=== PATIENT | male | born 1955 | race Caucasian/White ===

== ENCOUNTER 2016-06-30 16:14 | Emergency (ER) | payer MEDICAID ==
[2016-06-30 16:36] VITALS: BP 158/96
--- NOTE | 2016-06-30 16:56 | UC ---
General HPI - HPI Summary HPI Summary: complaint of tick attached to genitals that was removed last night unsure of how long it was attached painful at the sight today feels a burning sensation took some naprosyn with some relief complaint of left arm rash that started approx 2 weeks slightly itchy , no drainage tried bag balm on rash without relief - History of Current Complaint Chief Complaint: UCSkin Stated Complaint: TICK BITE Time Seen by Provider: 06/30/16 16:50 Hx Obtained From: Patient - Allergy/Home Medications Allergies/Adverse Reactions: Allergies Allergy/AdvReac Type Severity Reaction Status Date / Time Cephalexin [From Keflex] Allergy Intermediate Hives & Verified 06/30/16 16:36 Swelling Penicillin V Allergy Intermediate Hives & Verified 06/30/16 16:36 [From Penicil VK] Swelling Cephalosporins Allergy HIVES AND Verified 06/30/16 16:36 SWELLING ALL PENICILLINS Allergy HIVES AND Uncoded 06/30/16 16:36 SWELLING ENVIRONMENTAL Allergy ALLERGIC Uncoded 06/30/16 16:36 RHINITIS Home Medications: Home Medications Furosemide TAB* [Lasix TAB*] 20 mg PO EVERY OTHER DAY 06/30/16 [History Confirmed 06/30/16] Tamsulosin CAP* [Flomax CAP*] 0.4 mg PO DAILY 06/30/16 [History Confirmed ] amLODIPine TAB* [Norvasc 5 mg TAB*] 5 mg PO DAILY 06/30/16 [History Confirmed ] PMH/Surg Hx/FS Hx/Imm Hx Previously Healthy: Yes Endocrine History Of: Denies: Diabetes, Thyroid Disease Cardiovascular History Of: Reports: Hypertension - CONTROL WITH MEDS Denies: Cardiac Disorders, Pacemaker/ICD Respiratory History Of: Denies: COPD, Asthma GI/ History Of: Denies: Ulcer, Renal Disease - Surgical History Surgical History: Yes Surgery Procedure, Year, and Place: TONSILLECTOMY. 1975 WISDOM TEETH EXTRACTION , [place]. RIGHT CARPALTUNNEL RELEASE AND RECONNECT NERVE SURGERY, [place]. VASECTOMY AND REVERSAL, [facility] – [place] / [place]. 2007 [facility] NEUROMA - LEFT FOOT - BENIGN, [place]. ULNAR NERVE - RT HAND, [place] - Family History Known Family History: Negative: Cardiac Disease, Hypertension, Diabetes - Social History Occupation: Employed Full-time Lives: With Family Alcohol Use: Occasionally Substance Use Type: None Smoking Status (MU): Former Smoker - Immunization History Most Recent Influenza Vaccination: 2014 Most Recent Tetanus Shot: 2009 Most Recent Pneumonia Vaccination: NONE Review of Systems Constitutional: Negative Skin: Other - tick bite Eyes: Negative ENT: Negative Respiratory: Negative Cardiovascular: Negative Gastrointestinal: Negative Genitourinary: Negative Motor: Negative Neurovascular: Negative Musculoskeletal: Negative Neurological: Negative Psychological: Negative All Other Systems Reviewed And Are Negative: Yes Physical Exam Triage Information Reviewed: Yes Appearance: No Pain Distress, Well-Nourished Vital Signs: Initial Vital Signs Temp 98.6 F 06/30/16 16:26 Pulse 72 06/30/16 16:26 Resp 20 06/30/16 16:26 BP 158/96 06/30/16 16:26 Pulse Ox 97 06/30/16 16:26 Vital Signs Reviewed: Yes Eyes: Positive: Conjunctiva Clear ENT: Positive: Pharynx normal, TMs normal Neck: Positive: No Lymphadenopathy Respiratory: Positive: Lungs clear, Normal breath sounds, No respiratory distress Cardiovascular: Positive: RRR, No Murmur, Pulses Normal Abdomen Description: Positive: Nontender, Soft Bowel Sounds: Positive: Present Musculoskeletal: Positive: No Edema Psychological Exam: Normal Skin: Positive: Other - tick bite, left wrist area of erythema- raised red borader clear center Course/Dx - Differential Dx - Multi-Symptom Differential Diagnoses: Other - tinea, contact dermatitis cellulitis, tick bite Provider Diagnoses: tick bite. tinea. elevated blood pressure Discharge - Discharge Plan Condition: Stable Disposition: HOME Prescriptions: Clotrimazole/Betamethasone* [Lotrisone Cream*] 1 applic TOPICAL BID #1 tube DOXYcycline CAP(*) [DOXYcycline 100MG CAP(*)] 100 mg PO DAILY #2 cap Patient Education Materials: Tick Bite (ED), Tinea Corporis (ED) Referrals: Rudolph Nicolas MD [Primary Care Provider] - Additional Instructions: Please take antibiotic and use cream as directed Increase fluids and rest Take naproxen for pain Please review your discharge instructions. If your symptoms do not improve please call your primary care provider or return to urgent care. Your blood pressure is elevated. Please contact your primary care provider within 1 day -4 weeks for further evaluation
== END 2016-06-30 17:20 | disposition home or self-care (01) ==
LOC: UCEAST 16:14
DX: S40.862A Insect bite (nonvenomous) of left upper arm, initial encounter (principal); W57.XXXA Bitten or stung by nonvenomous insect and other nonvenomous arthropods, initial encounter; I10 Essential (primary) hypertension; Z88.3 Allergy status to other anti-infective agents; Z88.0 Allergy status to penicillin; Z87.891 Personal history of nicotine dependence
CPT/HCPCS: 99212; G0463

== ENCOUNTER 2018-02-01 18:54 | Emergency (ER) | payer BC, OTHER ==
[2018-02-01 19:24] VITALS: BP 134/83
--- NOTE | 2018-02-01 19:35 | UC ---
Shoulder Pain HPI - HPI Summary HPI Summary: slipped and fell in to a ditch while out deer hunting today pain in left ribs--- - History of Current Complaint Chief Complaint: UCUpperExtremity Stated Complaint: L SHOULDER PAIN Time Seen by Provider: 02/01/18 19:27 Hx Obtained From: Patient Onset/Duration: Sudden Onset, Lasting Hours Timing: Constant Location Of Pain: Is Discrete @ - left ribs from under shulder blade to under axilla Pain Intensity: 3 Pain Scale Used: 0-10 Numeric Character: Aching Aggravating Factor(s): Movement Alleviating Factor(s): Nothing Associated Signs And Symptoms: Positive: Negative - Allergies/Home Medications Allergies/Adverse Reactions: Allergies Allergy/AdvReac Type Severity Reaction Status Date / Time MS Cephalexin [From Keflex] Allergy Intermediate Hives & Verified 02/01/18 19:06 Swelling gabapentin Allergy Hives Verified 02/01/18 19:07 MS Cephalosporins Allergy HIVES AND Verified 02/01/18 19:06 [Cephalosporins] SWELLING ALL PENICILLINS Allergy HIVES AND Uncoded 02/01/18 19:06 SWELLING ENVIRONMENTAL Allergy ALLERGIC Uncoded 02/01/18 19:06 RHINITIS Home Medications: Home Medications Doxazosin TAB* [Cardura TAB*] 4 mg PO BEDTIME 02/01/18 [History Confirmed ] Oxybutynin TAB* [Ditropan TAB*] 15 mg PO DAILY 02/01/18 [History Confirmed 02/01] Spironolactone TAB* [Aldactone TAB*] 25 mg PO DAILY 02/01/18 [History Confirmed 02/01/18] PMH/Surg Hx/FS Hx/Imm Hx Previously Healthy: No - back surgeries Cardiovascular History: Hypertension - Surgical History Surgical History: Yes Surgery Procedure, Year, and Place: TONSILLECTOMY. 1975 WISDOM TEETH EXTRACTION , [place]. RIGHT CARPALTUNNEL RELEASE AND RECONNECT NERVE SURGERY, [place]. [place] [facility] [place]. 2007 [facility] NEUROMA - LEFT FOOT - BENIGN, [place]. ULNAR NERVE - RT HAND, [place]. back surgery September 16, 2017 - Family History Known Family History: Negative: Cardiac Disease, Hypertension, Diabetes - Social History Occupation: Unemployed Lives: With Family Alcohol Use: Occasionally Substance Use Type: None Smoking Status (MU): Former Smoker - Immunization History Most Recent Influenza Vaccination: 2014 Most Recent Tetanus Shot: 2009 Most Recent Pneumonia Vaccination: NONE Review of Systems All Other Systems Reviewed And Are Negative: Yes Constitutional: Positive: Negative Skin: Positive: Negative Eyes: Positive: Negative ENT: Positive: Negative Respiratory: Positive: Negative Cardiovascular: Positive: Negative Gastrointestinal: Positive: Negative Genitourinary: Positive: Negative Motor: Positive: Negative Neurovascular: Positive: Negative Musculoskeletal: Positive: Arthralgia - left rib pain Neurological: Positive: Negative Psychological: Positive: Negative Is Patient Immunocompromised?: No Physical Exam Triage Information Reviewed: Yes Appearance: Well-Appearing, No Pain Distress, Well-Nourished Vital Signs: Initial Vital Signs Temp 98.7 F 02/01/18 19:15 Pulse 67 02/01/18 19:15 Resp 18 02/01/18 19:15 BP 134/83 02/01/18 19:15 Pulse Ox 97 02/01/18 19:15 Vital Signs Reviewed: Yes Eye Exam: Normal Eyes: Positive: Conjunctiva Clear ENT Exam: Normal ENT: Positive: Normal ENT inspection, Hearing grossly normal. Negative: Nasal congestion, Trismus, Muffled voice, Hoarse voice Dental Exam: Normal Neck exam: Normal Neck: Positive: Supple, Nontender Respiratory Exam: Normal Respiratory: Positive: Lungs clear, Normal breath sounds, No respiratory distress, No accessory muscle use, Other: - left rib pain Cardiovascular Exam: Normal Cardiovascular: Positive: RRR, No Murmur, Pulses Normal Musculoskeletal Exam: Normal Musculoskeletal: Positive: Strength Intact, ROM Intact, No Edema Neurological Exam: Normal Neurological: Positive: Alert, Muscle Tone Normal Psychological Exam: Normal Skin Exam: Normal Diagnostics - Radiology No standard instances Radiology Interpretation Completed By: ED Physician Summary of Radiographic Findings: no eveidence of fracture or pneumthorax Shoulder Course/Dx - Course Assessment/Plan: rest, incentive spirometry, naproxen follow with pcp prn - Differential Dx/Diagnosis Provider Diagnosis: Contusion of rib on left side Discharge - Sign-Out/Discharge Documenting (check all that apply): Patient Departure All imaging exams completed and their final reports reviewed: No - Discharge Plan Condition: Stable Disposition: HOME Patient Education Materials: Naproxen (By mouth), Rib Contusion (ED) Referrals: Leonidas ALVAREZ,Jignesh Chatterjee [Primary Care Provider] - If Needed - Billing Disposition and Condition Condition: STABLE Disposition: Home
--- NOTE | 2018-02-02 09:33 | UC ---
- Progress Note Progress Note: PROGRESS NOTE: Radiology called to note non displaced fractures of left 9th and 10th ribs. Patient will be called to check on current condition. If any breathing, respiratory, fever or pain concerns, he will be instructed to go to the ED. Moses Morris MD Course/Dx - Diagnoses Provider Diagnoses: Contusion of rib on left side Discharge - Sign-Out/Discharge Documenting (check all that apply): Post-Discharge Follow Up All imaging exams completed and their final reports reviewed: No - Discharge Plan Condition: Stable Disposition: HOME Patient Education Materials: Naproxen (By mouth), Rib Contusion (ED) Referrals: Leonidas ALVAREZ,Jignesh Chatterjee [Primary Care Provider] - If Needed - Billing Disposition and Condition Condition: STABLE Disposition: Home
== END 2018-02-01 20:36 | disposition home or self-care (01) ==
LOC: UCEAST 18:54
DX: S20.20XA Contusion of thorax, unspecified, initial encounter (principal); W01.0XXA Fall on same level from slipping, tripping and stumbling without subsequent striking against object, initial encounter; Y92.9 Unspecified place or not applicable; I10 Essential (primary) hypertension; Z88.1 Allergy status to other antibiotic agents; Z88.0 Allergy status to penicillin; Z87.891 Personal history of nicotine dependence
CPT/HCPCS: 99211; G0463